=== PATIENT | male | born 1995 | race Caucasian/White ===

== ENCOUNTER 2017-04-23 14:26 | Emergency (ER) | payer OTHER ==
[~2017-04-23] VITALS: Ht 190.5 cm; Wt 139.0 kg
[2017-04-23 14:32] VITALS: Ht 190.5 cm; Wt 139.0 kg
--- NOTE | 2017-04-23 19:26 | ERD ---
ER Documentation Chief Complaint Date/Time DATE: 04/23/17 TIME: 19:15 Chief Complaint cough & congestion x1mth HPI 21-year-old male presents to emergency department for complaints of cough and congestion for 1 month. Patient has been having on and off wheezing. Patient has been having dry cough, does not cough up any phlegm or blood. Patient does not have any shortness of breath or wheezing. ROS All systems reviewed and are negative except as per history of present illness. Medications Home Meds Reported Medications [none] Unknown Strength No Conflict Check 04/23/17 Allergies Allergies: Coded Allergies: No Known Allergy (Unverified , 04/23/17) PMhx/Soc Medical and Surgical Hx: pt denies Surgical Hx History of Surgery: No Anesthesia Reaction: No Hx Neurological Disorder: No Hx Respiratory Disorders: Yes (URIs) Hx Cardiac Disorders: No Hx Psychiatric Problems: No Hx Miscellaneous Medical Probl: No Hx Alcohol Use: No Hx Substance Use: No Hx Tobacco Use: No Smoking Status: Never smoker FmHx Family History: No coronary disease, No diabetes, No other Physical Exam Vitals Vital Signs Date Time Temp Pulse Resp B/P Pulse Ox O2 Delivery O2 Flow Rate FiO2 04/23/17 14:32 99.2 103 20 157/71 98 Physical Exam GENERAL: The patient is well developed and appropriate for usual state of health, in no apparent distress. CHEST: Clear to auscultation bilaterally. There are no rales, wheezes or rhonchi. HEART: Regular rate and rhythm. No murmurs, clicks, rubs or gallops. No S3 or S4. ABDOMEN: Soft, nontender and nondistended. Good bowel sounds. No rebound or guarding. No gross peritonitis. No gross organomegaly or masses. No Holman sign or McBurney point tenderness. BACK: No midline or flank tenderness. EXTREMITIES: Equal pulses bilaterally. There is no peripheral clubbing, cyanosis or edema. No focal swelling or erythema. Full range of motion. Grossly neurovascularly intact. NEURO: Alert and oriented. Cranial nerves 2-12 intact. Motor strength in all 4 extremities with 5/5 strength. Sensation grossly intact. Normal speech and gait. SKIN: There is no apparent rash or petechia. The skin is warm and dry. HEMATOLOGIC AND LYMPHATIC: There is no evidence of excessive bruising or lymphedema. No gross cervical, axillary, or inguinal lymphadenopathy. Results 24 hrs PROCEDURE: XR Chest PA CLINICAL INDICATION: Cough TECHNIQUE: An PA radiograph of the chest was submitted. COMPARISON: None. FINDINGS: Cardiovascular: The cardiovascular silhouette appears unremarkable. Lung Velazquez: The lung velazquez appear clear with no nodule, alveolar infiltrate, or interstitial prominence evident. Pleural Spaces: There is no pneumothorax or pleural fluid accumulation evident. Osseous Structures: The osseous structures appear intact. Soft Tissues: The soft tissues appear unremarkable. IMPRESSION: Unremarkable PA chest. Physician Deepika Date Time Electronically viewed and signed by Physician Deepika on 04/23/2017 19:59 RH/ CC: DEMETRIO LORA COOK CANDY Procedures/MDM Medical Decision Making: Patient symptoms are most likely consistent with acute bronchitis, which possibly from atypical infection. There is low suspicion for Pneumonia at this time since patients lungs sounds are clear, patient O2 saturation is normal and patient doesnt show any respiratory distress. Patients chest xray doesnt show infiltrates or any other cardiopulmonary emergencies at this time. There is low suspicion for other cardiopulmonary emergencies at this time such as CHF, Pulmonary Embolism, Pneumothorax, Aortic Aneurysm or any other cardiopulmonary emergencies at this time. There is low suspicion for sepsis. Patient appears well and is hemodynamically stable. Fever is controlled with medicines. Disposition: Home. Condition: Stable Prescriptions: Azithromycin, guaifenesin with codeine Zyrtec ibuprofen albuterol Instructions: Patient is advised to take medications as prescribed. Patient is advised to rest. Patient advised to increase fluid intake, do humidifier at home and if possible, do salt water gargles. Patient is advised that if symptoms are worse, shortness of breath, uncontrolled fever, stridor, vomiting, worst signs and symptoms to return to emergency department immediately. Otherwise, patient is advised to follow up with primary doctor in 5-7 days. Disclaimer: Inadvertent spelling and grammatical errors are likely due to EHR/ dictation software use and do not reflect on the overall quality of patient care. Also, please note that the electronic time recorded on this note does not necessarily reflect the actual time of the patient encounter. Departure Diagnosis: Primary Impression: Acute bronchitis Bronchitis organism: unspecified organism Qualified Code: J20.9 - Acute bronchitis, unspecified organism Condition: Stable Patient Instructions: Bronchitis, Antiobiotic Treatment (Adult) Additional Instructions: Patient is advised to take medications as prescribed. Patient is advised to rest. Patient advised to increase fluid intake, do humidifier at home and if possible, do salt water gargles. Patient is advised that if symptoms are worse, shortness of breath, uncontrolled fever, stridor, vomiting, worst signs and symptoms to return to emergency department immediately. Otherwise, patient is advised to follow up with primary doctor in 5-7 days. DEMETRIO LORA NP Apr 23, 2017 19:25
--- NOTE | 2017-04-23 20:00 | RADRPT ---
PROCEDURE: XR Chest PA CLINICAL INDICATION: Cough TECHNIQUE: An PA radiograph of the chest was submitted. COMPARISON: None. FINDINGS: Cardiovascular: The cardiovascular silhouette appears unremarkable. Lung Velazquez: The lung velazquez appear clear with no nodule, alveolar infiltrate, or interstitial promi nence evident. Pleural Spaces: There is no pneumothorax or pleural fluid accumulation evident. Osseous Structures: The osseous structures appear intact. Soft Tissues: The soft tissues appear unremarkable. IMPRESSION: Unremarkable PA chest. Physician Deepika Date Time Electronically viewed and signed by Jones Vera Physician on 04/23/2017 19:59 /
[2017-04-23] MEDS ORDERED: ALBU8.5H3 INH (20:16)
[2017-04-23] MEDS ORDERED: GUAI473L22 PO (20:16)
[2017-04-23] MEDS ORDERED: IBUP-1542 PO (20:16)
[2017-04-23] MEDS ORDERED: AZIT250T94 PO (20:16)
[2017-04-23] MEDS ORDERED: CETI5SOL PO (20:16)
[2017-04-23 20:24] VITALS: BP 142/67; PULSE 77; RESP 20; TEMP 98.4
== END 2017-04-23 20:25 | disposition home or self-care (01) ==
LOC: FTE 14:26
DX: J20.9 Acute bronchitis, unspecified (principal)
CPT/HCPCS: 71010; Z7502